=== PATIENT | female | born 1960 | race Caucasian/White ===

== ENCOUNTER 2018-03-02 09:52 | Outpatient (CLI) | payer OTHER | END 2018-03-02 09:53 | disposition home or self-care (01) | LOC: BICMAMMO 09:52 | PROVIDERS: ATTEND Obstetrics & Gynecology | DX: Z12.31 Encounter for screening mammogram for malignant neoplasm of breast (principal); Z85.3 Personal history of malignant neoplasm of breast; Z85.51 Personal history of malignant neoplasm of bladder; Z80.3 Family history of malignant neoplasm of breast | CPT/HCPCS: 77063; 77067 ==

== ENCOUNTER 2019-03-05 09:47 | Outpatient (CLI) | payer OTHER ==
--- NOTE | 2019-03-05 10:23 | MMO ---
Bilateral MAMMO Bilat Screen [facility]. CLINICAL HISTORY: Patient is 58 years old and is seen for screening. The patient has the following family history of breast cancer: maternal aunt, at age 60 and maternal aunt, at age 60. The patient has a history of Excisional Breast Biopsy procedure revealed invasive ductal left breast carcinoma in February,; Ultrasound Guided Core Biopsy procedure revealed invasive ductal left breast carcinoma in January, and bladder cancer. The patient has a history of left Ultrasound Guided Core Biopsy in 2011 - benign, left Lumpectomy in February, - invasive ductal carcinoma and left Ultrasound Guided Core Biopsy in January, - malignant. VIEWS: The views performed were: bilateral craniocaudal with tomosynthesis and bilateral mediolateral oblique with tomosynthesis. FILMS COMPARED: The present examination has been compared to prior imaging studies performed at [facility] on 11/24/1997, 07/29/2002, 07/30/2003, 07/30/2004, 09/16/2005, 09/25/2006, 11/26/2007, 01/07/2009, 01/22/2010, 02/04/2011, 02/07/2012, 01/05/2015, 01/21/2016, 01/23/2017 and 03/02/2018. MAMMOGRAM FINDINGS: There are scattered fibroglandular densities. Finding 1: There is a stable area of architectural distortion with associated post-surgical scar seen in the left breast. Finding 2: There are stable benign appearing calcifications seen in the left breast. There are no suspicious masses, suspicious calcifications, or new areas of architectural distortion. IMPRESSION: THERE IS NO MAMMOGRAPHIC EVIDENCE OF MALIGNANCY. A ROUTINE FOLLOW-UP MAMMOGRAM IN 1 YEAR IS RECOMMENDED. THE RESULTS OF THIS EXAM WERE SENT TO THE PATIENT. ACR BI-RADS Category 2 - Benign finding MAMMOGRAPHY NOTE: 1. A negative mammogram report should not delay a biopsy if a dominant of clinically suspicious mass is present. 2. Approximately 10% to 15% of breast cancers are not detected by mammography. 3. Adenosis and dense breasts may obscure an underlying neoplasm.
== END 2019-03-05 09:48 | disposition home or self-care (01) ==
LOC: BICMAMMO 09:47
PROVIDERS: ATTEND Obstetrics & Gynecology
DX: Z12.31 Encounter for screening mammogram for malignant neoplasm of breast (principal); Z85.3 Personal history of malignant neoplasm of breast
CPT/HCPCS: 77063; 77067

== ENCOUNTER 2020-04-06 14:18 | Outpatient (CLI) | payer OTHER ==
--- NOTE | 2020-04-06 14:51 | MMO ---
Bilateral MAMMO Bilat Screen [facility]. CLINICAL HISTORY: Patient is 59 years old and is seen for screening. The patient has the following family history of breast cancer: maternal aunt, at age 60 and maternal aunt, at age 60. The patient has a history of excisional breast biopsy procedure revealed invasive ductal left breast carcinoma in February,; Ultrasound guided core biopsy procedure revealed invasive ductal left breast carcinoma in January, and bladder cancer. The patient has a history of left Ultrasound Guided Core Biopsy in 2011 - benign, left Lumpectomy in February, - invasive ductal carcinoma and left Ultrasound Guided Core Biopsy in January, - malignant. VIEWS: The views performed were: bilateral craniocaudal with tomosynthesis; bilateral mediolateral oblique with tomosynthesis; and left exaggerated craniocaudal. FILMS COMPARED: The present examination has been compared to prior imaging studies performed at [facility] on 01/21/2016, 01/23/2017, 03/02/2018 and 03/05/2019. This study has been interpreted with the assistance of computer-aided detection. MAMMOGRAM FINDINGS: There are scattered fibroglandular densities. There are benign appearing calcifications seen in the left breast. There are stable post-operative changes on left. There are no suspicious masses, suspicious calcifications, or new areas of architectural distortion. IMPRESSION: THERE IS NO MAMMOGRAPHIC EVIDENCE OF MALIGNANCY. A ROUTINE FOLLOW-UP MAMMOGRAM IN 1 YEAR IS RECOMMENDED. THE RESULTS OF THIS EXAM WERE SENT TO THE PATIENT. ACR BI-RADS Category 2 - Benign finding MAMMOGRAPHY NOTE: 1. A negative mammogram report should not delay a biopsy if a dominant of clinically suspicious mass is present. 2. Approximately 10% to 15% of breast cancers are not detected by mammography. 3. Adenosis and dense breasts may obscure an underlying neoplasm. Reported by: ELIUD TOWNSEND MD Electonically Signed: [id number]
== END 2020-04-06 14:19 | disposition home or self-care (01) ==
LOC: BICMAMMO 14:18
PROVIDERS: ATTEND Obstetrics & Gynecology
DX: Z12.31 Encounter for screening mammogram for malignant neoplasm of breast (principal); Z85.3 Personal history of malignant neoplasm of breast; Z80.3 Family history of malignant neoplasm of breast; Z91.89 Other specified personal risk factors, not elsewhere classified
CPT/HCPCS: 77063; 77067

== ENCOUNTER 2021-04-07 13:13 | Outpatient (CLI) | payer BC | END 2021-04-07 13:14 | disposition home or self-care (01) | LOC: BICULT 13:13 | PROVIDERS: ATTEND Psychiatry & Neurology Neurology | DX: R09.89 Other specified symptoms and signs involving the circulatory and respiratory systems (principal); R20.2 Paresthesia of skin | CPT/HCPCS: 93880 ==

== ENCOUNTER 2021-04-08 08:39 | Outpatient (CLI) | payer BC | END 2021-04-08 08:40 | disposition home or self-care (01) | LOC: BICMAMMO 08:39 | PROVIDERS: ATTEND Internal Medicine Hematology & Oncology | DX: Z12.31 Encounter for screening mammogram for malignant neoplasm of breast (principal); Z80.3 Family history of malignant neoplasm of breast; Z85.3 Personal history of malignant neoplasm of breast; Z91.89 Other specified personal risk factors, not elsewhere classified | CPT/HCPCS: 77063; 77067 ==

== ENCOUNTER 2022-04-19 07:51 | Outpatient (CLI) | payer BC | END 2022-04-19 07:52 | disposition home or self-care (01) | LOC: BICMAMMO 07:51 | PROVIDERS: ATTEND Obstetrics & Gynecology | DX: Z12.31 Encounter for screening mammogram for malignant neoplasm of breast (principal); Z80.3 Family history of malignant neoplasm of breast; Z85.3 Personal history of malignant neoplasm of breast; Z98.890 Other specified postprocedural states | CPT/HCPCS: 77063; 77067 ==

== ENCOUNTER 2023-12-15 10:15 | Outpatient (CLI) | payer BC | END 2023-12-15 10:16 | disposition home or self-care (01) | LOC: BICMAMMO 10:15 | PROVIDERS: ATTEND Family Medicine | DX: M85.89 Other specified disorders of bone density and structure, multiple sites (principal) | CPT/HCPCS: 77080 ==

== ENCOUNTER 2024-05-30 09:49 | Day surgery (SDC) | payer BC ==
[2024-05-29 10:17] VITALS: BMI 24.3
[~2024-05-30 09:49] MED LIST: ENOXAPARIN IRR SCH; FLUOROURACIL IRR SCH
[2024-05-30] MEDS ORDERED: fentaNYL 50 mcg/mL 1 mL Vial ONE (10:10)
[2024-05-30] MEDS ORDERED: PROPOFOL 20 ML ONE (10:10)
[2024-05-30] MEDS ORDERED: Midazolam HCl 2 mg/2 ml Vial ONE (10:11)
[2024-05-30] MEDS ORDERED: Lidocaine 2% PF 5 ML VIAL ONE (10:11)
[2024-05-30] MEDS ORDERED: Ondansetron PF 4 MG/2 ML Vial ONE (10:11)
[2024-05-30] MEDS ORDERED: Cyclopentolate 1% Opth Drop 2 ML BOT ONE (10:13)
[2024-05-30] MEDS ORDERED: PHENYLephrine 2.5% Ophth Soln 15 ml Bottle ONE (10:13)
[2024-05-30] MEDS ORDERED: Famotidine/PF 20 mg/2ml Vial ONE (11:36)
[2024-05-30] MEDS ORDERED: Rocuronium Bromide 10 MG/ML (10ML VIAL) ONE (11:39)
[2024-05-30] MEDS ORDERED: Dexamethasone 4 mg/ml Vial ONE (12:01)
[2024-05-30] MEDS ORDERED: Lidocaine 4% PF 5 ML AMP ONE (12:07)
[2024-05-30] MEDS ORDERED: Triamcinolone 40 MG/ML VIAL ONE (12:07)
[2024-05-30] MEDS ORDERED: Bupivacaine 0.75% 10 ML VIAL ONE (12:07)
[2024-05-30] MEDS ORDERED: CEFAZOLIN 1 GM VIAL ONE (12:07)
[2024-05-30] MEDS ORDERED: Maxitrol 0.1% Opth Oint 3.5 GM TUBE ONE (12:07)
[2024-05-30] MEDS ORDERED: Lidocaine 1% PF 5 ML VIAL ONE (12:07)
[2024-05-30] MEDS ORDERED: Enoxaparin 30 MG (0.3 mL) SYRINGE ONE (12:07)
[2024-05-30] MEDS ORDERED: SUGAMMADEX SODIUM 200 MG/2 ML VIAL ONE (12:22)
== END 2024-05-30 15:00 | disposition home or self-care (01) ==
LOC: SDC 09:49
PROVIDERS: ATTEND Ophthalmology Retina Specialist
PROC: 08T43ZZ Resection of Right Vitreous, Percutaneous Approach (ICD-10-PCS; principal; 2024-05-30)
DX: H33.021 Retinal detachment with multiple breaks, right eye (principal)
CPT/HCPCS: 67025; J0690; J1100; J1650; J2001; J2250; J2405; J2704; J3010; J3301; J3490; J9190; S0028